=== PATIENT | female | born 1975 | race Hispanic/Latino ===

== ENCOUNTER 2017-10-27 09:27 | Day surgery (SDC) | payer OTHER ==
[2017-10-26 11:08] VITALS: BMI 33.3
[2017-10-27] MEDS ORDERED: Midazolam HCl 2 mg/2 ml Vial ONE (11:49)
[2017-10-27] MEDS ORDERED: Ondansetron HCl/PF 4 MG/2 ML Vial ONE ×2 (11:50→16:00)
[2017-10-27] MEDS ORDERED: Fentanyl 100 MCG/2 ML VIAL ONE ×4 (11:50→15:41)
[2017-10-27] MEDS ORDERED: Lidocaine 1% w/Epinephrine 1:200K 30 ML VIAL ONE (12:28)
[2017-10-27] MEDS ORDERED: Labetalol HCl 100 MG/20 ML VIAL ONE (15:03)
[2017-10-27] MEDS ORDERED: Ketorolac Tromethamine 30 MG/ML VIAL ONE (15:41)
[2017-10-27] MEDS ORDERED: Dexamethasone 20 MG/5 ML VIAL ONE (16:00)
[2017-10-27] MEDS ORDERED: Succinylcholine Chloride 20 MG/ML 10 ml SYRINGE FS ONE (16:00)
[2017-10-27] MEDS ORDERED: Lidocaine 1% PF 5 ML VIAL ONE (16:00)
[2017-10-27] MEDS ORDERED: PROPOFOL 200 MG/20 ML VIAL ONE (16:00)
[2017-10-27] MEDS ORDERED: Hydrocodone-Acetamin 15 ML UDCUP ONE (17:50)
[2017-10-27] MEDS ORDERED: Promethazine HCl 25 MG/ML VIAL ONE (19:19)
--- NOTE | 2017-10-28 00:17 | OP ---
PREOPERATIVE DIAGNOSES: 1. Left thyroid mass. 2. Dysphagia. POSTOPERATIVE DIAGNOSES: 1. Left thyroid mass. 2. Dysphagia. PROCEDURE: Left hemithyroidectomy with isthmusectomy. SURGEON: Ray Gregory M.D. ESTIMATED BLOOD LOSS: 20 mL. COMPLICATIONS: None. ANESTHESIA: GETA with laryngeal nerve monitoring. DESCRIPTION OF PROCEDURE: The patient was taken to the operating room and placed supine on the table . General endotracheal anesthesia was obtained by the Anesthesia staff. Tube was secured in the mid line upper lip. Shoulder roll was placed. The patient then prepped and draped in standard surgical fashion. Following this, approximately a 5 to 8 cm incision was made at the skin crease 2 cm above t he clavicles. Following this, it was carried through skin, subcutaneous tissue, and the platysmal la billy. Subplatysmal flaps were elevated superiorly to the thyroid notch and inferiorly to the clavicle s. Following this, the strap muscles were in the midline and retracted. A large left thyr oid lobe with a solid mass in it was encountered, staying immediately adjacent to the capsule, dissec tion was then medially and laterally in the neck. The middle vein of the thyroid was suture ligated. Following this, the gland was displaced inferiorly as the superior pole vessels were suture ligated immediately adjacent to the thyroid gland. The superior thyroid on this left side was identified an d was left vascularized. Dissection then was turned to identify the recurrent laryngeal nerve, which was identified approximately 30 degrees from the tracheoesophageal groove on this left side. As thi s nerve was identified, it was dissected to the cricothyroid joint. The gland was released from its attachments in this area. Following this, the inferior thyroid artery was suture ligated. The remai sunny attachments of the gland to the trachea were suture ligated and then Bovie transected. Followin g this, the gland was freed and large left thyroid lobe was freed. There was a nodule in the isthmus and this was then suture ligated and was removed. Wound was then irrigated. Drain was placed. The wound was closed using Monocryl stitches for the strap muscle layers as well as the platysmal layer and subcuticular layers. Dermabond was placed on the skin. The drain was noted to be working.
== END 2017-10-27 20:56 | disposition home or self-care (01) ==
LOC: SDC 09:27
PROVIDERS: ATTEND Otolaryngology Plastic Surgery within the Head & Neck
PROC: 0GTJ0ZZ Resection of Thyroid Gland Isthmus, Open Approach (ICD-10-PCS; principal; 2017-10-27)
PROC: 0GTG0ZZ Resection of Left Thyroid Gland Lobe, Open Approach (ICD-10-PCS; principal; 2017-10-27)
DX: E04.1 Nontoxic single thyroid nodule (principal); I10 Essential (primary) hypertension; Z79.2 Long term (current) use of antibiotics; Z79.899 Other long term (current) drug therapy; Z88.5 Allergy status to narcotic agent
CPT/HCPCS: 36415; 85014; 88307; 96374; J1100; J1885; J2001; J2250; J2405; J2550; J2704; J3010